=== PATIENT | female | born 2000 | race Caucasian/White ===

== ENCOUNTER 2021-06-07 21:33 | Inpatient (IN) | payer MEDICAID ==
[~2021-06-07] VITALS: Ht 162.6 cm; Wt 74.0 kg
[~2021-06-07 21:33] MED LIST: NO MEDS
[2021-06-07 23:07] LABS: CLARITY URINE CLEAR (CLEAR); COLOR URINE DARK YELLOW (YELLOW); KETONES URINE TRACE (NEGATIVE); LEUKOCYTE ESTERASE URINE NEGATIVE (NEGATIVE); NITRITE URINE NEGATIVE (NEGATIVE); OCCULT BLOOD URINE NEGATIVE (NEGATIVE); PH URINE 5.5 (4.5-8.0); PROTEIN URINE TRACE (NEGATIVE); SPECIFIC GRAVITY URINE 1.016 (1.005-1.030)
[2021-06-08] MEDS ORDERED: ONDANSETRON HCL 4MG/2ML INJ IV STA (02:06)
[2021-06-08] MEDS ORDERED: MAGNESIUM/ALUMINUM HYDROXIDE/SIMETHICONE 30ML UDC PO STA (02:06)
[2021-06-08] MEDS ORDERED: FAMOTIDINE 20MG TABLET PO ONE (02:15)
[2021-06-08] MEDS ORDERED: SODIUM CHLORIDE 0.9% 1,000 ML IV ONE (02:15)
[2021-06-08 02:31] LABS: HEMATOCRIT. 42.8 % (36.0-48.0); HEMOGLOBIN. 14.6 g/dL (12.0-16.0); MEAN PLATELET VOLUME 7.6 fl (7.4-10.4); PLATELET 289 x1000/uL (130-400); RED BLOOD CELL COUNT 4.87 mill/uL (4.2-5.4); RED CELL DISTRIBUTION WIDTH 13.7 % (11.6-14.6)
[2021-06-08 02:38] LABS: CHLORIDE 105 mEq/L (98-107)
[2021-06-08] MEDS ORDERED: PIPERACILLIN/TAZOBACTAM 3.375GM/50ML PREMIX IV ONE (03:00)
[2021-06-08] MEDS ORDERED: MORPHINE SULFATE 4 MG/ML CPJ (NOT FOR IM USE) IV ONE (03:00)
[2021-06-08] MEDS ORDERED: PIPERACILLIN/TAZ 3.375G PREMIX 50 ML IV NR (03:15)
[2021-06-08 07:50] LABS: PLATELET ESTIMATE NORMAL
[2021-06-08 08:00] VITALS: BP 130/84
[2021-06-08] MEDS: DEXT 5%/0.45% NACL 1000ML 1,000 ML IV SCH ×2 (10:30→20:52)
[2021-06-08] MEDS ORDERED: ONDANSETRON HCL 4MG/2ML INJ IV PRN (10:30)
[2021-06-08] MEDS ORDERED: ACETAMINOPHEN 325MG TABLET PO PRN (10:30)
[2021-06-08 12:00] VITALS: BP 125/68
[2021-06-08 14:08] VITALS: BP 119/75
[2021-06-08] MEDS ORDERED: INFLUENZA VACCINE 05/PF 0.5 ML SYRINGE IM ONE (15:00)
[2021-06-08 16:00] VITALS: BP 117/64
[2021-06-08 20:00] VITALS: BP 113/56
[2021-06-08] MEDS: MORPHINE SULFATE 2 MG/ML CPJ (NOT FOR IM USE) IV PRN (22:03)
[2021-06-09] VITALS: BP 108/65
[2021-06-09 04:00] VITALS: BP 109/56
[2021-06-09 06:24] LABS: BASOPHILS % 0.2 % (0.0-2.0); CHLORIDE 105 mEq/L (98-107); EOSINOPHILS % 1.9 % (0.0-5.0); HEMATOCRIT. 38.3 % (36.0-48.0); LYMPHOCYTES % 17.6 % (20.0-50.0); MEAN CORPUSCULAR HEMOGLOBIN 30.1 pg (28.0-32.0); MEAN CORPUSCULAR VOLUME 88.6 fL (81.0-99.0); MEAN PLATELET VOLUME 7.7 fl (7.4-10.4); NEUTROPHILS % 74.3 % (40.0-76.0); PLATELET 234 x1000/uL (130-400); RED BLOOD CELL COUNT 4.32 mill/uL (4.2-5.4); RED CELL DISTRIBUTION WIDTH 13.7 % (11.6-14.6)
[2021-06-09] MEDS: DEXT 5%/0.45% NACL 1000ML 1,000 ML IV SCH ×2 (06:38→18:53)
[2021-06-09 08:00] VITALS: BP 111/58
[2021-06-09] MEDS: PANTOPRAZOLE SODIUM 40 MG/VIAL IV SCH (08:13)
[2021-06-09 12:00] VITALS: BP 104/64
[2021-06-09 16:00] VITALS: BP 107/57
[2021-06-09 20:00] VITALS: BP 116/63
[2021-06-10] VITALS (7 sets, daily range): BP systolic 106–154; BP diastolic 51–82
[2021-06-10] MEDS: DEXT 5%/0.45% NACL 1000ML 1,000 ML IV SCH ×2 (04:45→12:19)
[2021-06-10 07:34] LABS: CHLORIDE 108 mEq/L (98-107)
[2021-06-10 07:38] LABS: AMYLASE 125 IU/L (25-115)
[2021-06-10] MEDS: PANTOPRAZOLE SODIUM 40 MG/VIAL IV SCH (08:04)
[2021-06-11] VITALS: BP 109/69
[2021-06-11] MEDS: DEXT 5%/0.45% NACL 1000ML 1,000 ML IV SCH ×3 (00:09→17:24)
[2021-06-11 01:19] LABS: HCG SCREEN NEGATIVE
[2021-06-11 04:00] VITALS: BP 98/52
[2021-06-11 08:00] VITALS: BP 118/65
[2021-06-11] MEDS: PANTOPRAZOLE SODIUM 40 MG/VIAL IV SCH (09:00)
[2021-06-11] MEDS ORDERED: BUPIVACAINE HCL/PF 0.5% (5MG/ML) 10ML ONE (09:02)
[2021-06-11] MEDS ORDERED: LIDOCAINE HCL 1% 30ML VIAL (10MG/ML) ONE (09:02)
[2021-06-11] MEDS ORDERED: POLYMYXIN B SULFATE 500000 UNITS/VIAL ONE (09:02)
[2021-06-11] MEDS ORDERED: SKIN ADHESIVE 0.7 GM EA TOP ONE (09:02)
[2021-06-11] MEDS ORDERED: INDOCYANINE GREEN 25 MG VIAL IV ONE (09:02)
[2021-06-11] MEDS ORDERED: LIDOCAINE HCL 1% 10 MG/ML 10ML VIAL ONE (10:05)
[2021-06-11] MEDS ORDERED: SODIUM CHLORIDE 0.9% 10ML VIAL ONE (10:09)
[2021-06-11] MEDS ORDERED: MIDAZOLAM HCL 2 MG/2 ML VIAL ONE (10:09)
[2021-06-11] MEDS ORDERED: PROPOFOL 200MG/20ML VIAL IV ONE (10:09)
[2021-06-11] MEDS ORDERED: GLYCOPYRROLATE 0.2 MG/ML 2ML VIAL ONE (10:09)
[2021-06-11] MEDS ORDERED: CEFAZOLIN SODIUM 1000MG/VIAL ONE (10:09)
[2021-06-11] MEDS ORDERED: NEOSTIGMINE METHYLSULFATE 1MG/ML 10 ML VIAL ONE (10:09)
[2021-06-11] MEDS ORDERED: SUCCINYLCHOLINE CHLORIDE 200MG/10ML IV ONE (10:09)
[2021-06-11] MEDS ORDERED: ROCURONIUM BROMIDE 10MG/ML VIAL 5ML IV ONE ×2 (10:09→11:11)
[2021-06-11] MEDS ORDERED: PHENYLEPHRINE HCL 10 MG/ML 1ML (IV VIAL) IV ONE (10:09)
[2021-06-11] MEDS ORDERED: FENTANYL CITRATE/PF 50MCG/ML 2ML VIAL ONE ×4 (10:09→11:51)
[2021-06-11] MEDS ORDERED: DEXAMETHASONE 4MG/ML 1ML VIAL ONE (10:09)
[2021-06-11] MEDS ORDERED: ONDANSETRON HCL 4MG/2ML INJ ONE (10:09)
[2021-06-11] MEDS ORDERED: METOCLOPRAMIDE HCL 10MG/2ML VIAL ONE (10:09)
[2021-06-11] MEDS ORDERED: KETOROLAC 30MG/ML VIAL ONE (10:10)
[2021-06-11 12:00] VITALS: BP 127/60
[2021-06-11] MEDS ORDERED: ALBUTEROL 90MCG/PUFF 17GM INHALER INH ONE (12:13)
[2021-06-11] MEDS ORDERED: HYDROCODONE/ACETAMINOPHEN 5/325MG TABLET PO PRN (12:45)
[2021-06-11] MEDS ORDERED: NALOXONE HCL 0.4MG/ML VIAL IV PRN (13:00)
[2021-06-11 16:00] VITALS: BP 124/60
[2021-06-11 20:00] VITALS: BP 118/70
[2021-06-11] MEDS: MORPHINE SULFATE 2 MG/ML CPJ (NOT FOR IM USE) IV PRN (23:29)
[2021-06-12] VITALS: BP 115/75
[2021-06-12 03:17] VITALS: BP 118/72
[2021-06-12 04:00] VITALS: BP 118/72
== END 2021-06-12 08:35 | disposition home or self-care (01) | DRG 263 ==
LOC: ER 21:33 → 8WST 06-08 03:58 → ENRESERV 06-08 07:21 → ER 06-08 08:13
PROVIDERS: ADMIT Internal Medicine; ATTEND Internal Medicine
PROC: 0FT44ZZ Resection of Gallbladder, Percutaneous Endoscopic Approach (ICD-10-PCS; principal; 2021-06-11)
PROC: 8E0W4CZ Robotic Assisted Procedure of Trunk Region, Percutaneous Endoscopic Approach (ICD-10-PCS; 2021-06-11)
DX: K85.10 Biliary acute pancreatitis without necrosis or infection (principal); K80.12 Calculus of gallbladder with acute and chronic cholecystitis without obstruction; R74.01 Elevation of levels of liver transaminase levels; Z20.822 Contact with and (suspected) exposure to COVID-19; E66.9 Obesity, unspecified; Z68.28 Body mass index [BMI] 28.0-28.9, adult; Z71.3 Dietary counseling and surveillance
CPT/HCPCS: 36415; 74181; 76700; 80053; 81003; 82150; 84703; 85025; 87426; 88304; 90686; 99285; C9113; G0378; J0330; J0690; J1100; J1885; J2250; J2270; J2370; J2405; J2543; J2704; J2710; J2765; J3010; J3490; J7030; Q9957